=== PATIENT | male | born 1990 | race Caucasian/White ===

== ENCOUNTER 2018-05-27 23:36 | Emergency (ER) | payer BC ==
[~2018-05-27] VITALS: Ht 182.9 cm; Wt 88.6 kg
[~2018-05-27 23:36] MED LIST: FLEXERIL 1010 MG/TAB PO; FLEXERIL5 MG PO; LEVAQUIN 5500 MG/TA1 PO; MOTRIN 800800 MG/TAB PO; NO HOME MEDICATIONS; NORCO 325 MG-51 TAB PO; PERCOCET 325 MG1 TA2 PO; PERCOCET 5/321 UDTAB PO; PREDNISONE20 MG PO; ULTRAM 50MG TAB50 MG PO; ULTRAM50 MG PO; VENTOLIN0.09 MG IH; VICODIN 5/5001 UDTAB PO
[2018-05-27 23:39] VITALS: BP 137/80; TEMP 97.9
[2018-05-28] MEDS ORDERED: NORCO 325 MG-51 TAB PO (00:07)
[2018-05-28 01:10] VITALS: PULSE 63
== END 2018-05-28 01:10 | disposition home or self-care (01) ==
LOC: COL.ER 23:36
DX: S60.222A Contusion of left hand, initial encounter (principal); W22.8XXA Striking against or struck by other objects, initial encounter; Y92.009 Unspecified place in unspecified non-institutional (private) residence as the place of occurrence of the external cause
CPT/HCPCS: Q4021